=== PATIENT | female | born 1995 | race Caucasian/White ===

== ENCOUNTER 2018-10-08 06:04 | Inpatient (IN) ==
[2018-10-03 12:41] LABS: Basophils % 0.3 % (0.0-0.8); Eosinophils # 0.2 10*3/uL (0.0-0.87); Eosinophils % 2.2 % (0.00-10.9); Hematocrit 38.9 VOL% (35.7-47.0); Hemoglobin 12.7 GM/DL (12.0-16.0); Immature Granulocytes % 0.3 %; Immature Granulocytes Absolute 0.02 #; Lymphocytes # 3.4 10*3/uL (1.4-4.0); Lymphocytes % 49.4 % (21.3-54.2); Mean Corpuscular HGB Conc 32.6 GM/DL (32-36); Mean Corpuscular Hemoglobin 29 PG (27-34); Mean Corpuscular Volume 89.4 FL (87-102); Mean Platelet Volume 9.5 FL (9.6-12.0); Monocytes # 0.4 10*3/uL (0.11-0.8); Monocytes % 5.9 % (1.7-12.7); Neutrophils # 2.9 10*3/uL (1.4-7.4); Neutrophils % 41.9 % (38.7-73.9); Platelet Count 319 T/CUMM (130-400); Red Blood Count 4.35 MC/CUMM (3.8-5.5); Red Cell Distribution Width 14.1 % (9.3-17.3); White Blood Count 6.9 T/CUMM (4-12)
[2018-10-03 13:01] LABS: Apearance,Urine CLEAR (Clear); Bacteria,Urine Occasional /HPF (Few); Bilirubin,Urine Negative (Negative); Blood, Urine Negative (Negative); Glucose,Urine (UA) Negative (Negative); Ketones,Urine Negative (Negative); Mucus,Urine Occasional /LPF (Occasional); Nitrite,Urine Negative (Negative); Protein,Urine Negative; Squamous Epithelial Cell,Urine Occasional /HPF (0-10); Urine Color Yellow (Yellow); Urine Specific Gravity 1.026 (1.001-1.035); Urine Urobilinogen < 2.0 EU/DL (0.2-1.0); WBC,Urine 1 /HPF (0-6)
[~2018-10-08 06:04] MED LIST: ceFAZolin 1,000 MG in SYRINGE 1 EACH IV ONE
[2018-10-08] MEDS ORDERED: FAMOTIDINE 20 MG TABLET PO ONE (06:44)
[2018-10-08] MEDS ORDERED: DIAZEPAM 5 MG TABLET PO ONE (06:44)
[2018-10-08] MEDS ORDERED: ceFAZolin 1,000 MG VIAL ONE (06:59)
[2018-10-08] MEDS ORDERED: DIAZEPAM 5 MG TABLET ONE (07:00)
[2018-10-08] MEDS ORDERED: FAMOTIDINE 20 MG TABLET ONE (07:00)
[2018-10-08] MEDS: LACTATED RINGERS 1,000 ML IV SCH ×4 (07:24→20:12)
[2018-10-08] MEDS ORDERED: MIDAZOLAM 2 MG/2 ML VIAL ONE ×3 (09:45→12:54)
[2018-10-08] MEDS ORDERED: ROPIVACAINE 0.5% 30 ML VIAL ONE ×2 (09:45→09:49)
[2018-10-08] MEDS ORDERED: fentaNYL 100 MCG/2 ML VIAL ONE ×2 (09:46→12:54)
[2018-10-08] MEDS ORDERED: LIDOCAINE 1% 5 ML VIAL ONE (09:57)
[2018-10-08] MEDS ORDERED: BACITRACIN OINT 0.9 GM PACK TOP ONE (10:15)
[2018-10-08] MEDS ORDERED: ONDANSETRON 4 MG/2 ML VIAL IV PRN (10:29)
[2018-10-08] MEDS ORDERED: MAGNESIUM HYDROXIDE SUSP 30 ML UDCUP PO PRN (10:29)
[2018-10-08] MEDS ORDERED: HYDROmorphone 2 MG/1 ML VIAL ONE (12:26)
[2018-10-08] MEDS: HYDROmorphone 2 MG/1 ML VIAL IV PRN ×4 (12:27→12:42)
[2018-10-08] MEDS ORDERED: ERGOCALCIFEROL 50,000 UNIT CAPSULE PO SCH (12:30)
[2018-10-08] MEDS ORDERED: ACETAMINOPHEN INJ 1,000 MG in PREMIX 1 EACH IV STA (12:50)
[2018-10-08] MEDS ORDERED: ACETAMINOPHEN 1,000 MG/100 ML VIAL IV ONE (12:51)
[2018-10-08] MEDS ORDERED: PROPOFOL 200 MG/20 ML VIAL IV ONE (12:53)
[2018-10-08] MEDS ORDERED: DESFLURANE 1 UNIT/15 MINUTE INH ONE (12:53)
[2018-10-08] MEDS ORDERED: ROCURONIUM 100 MG/10 ML VIAL IV ONE (12:54)
[2018-10-08] MEDS ORDERED: LACTATED RINGERS 1,000 ML IV ONE (12:54)
[2018-10-08] MEDS ORDERED: KETOROLAC 30 MG/1 ML VIAL ONE (12:54)
[2018-10-08] MEDS ORDERED: ONDANSETRON 4 MG/2 ML VIAL ONE (12:54)
[2018-10-08] MEDS: MORPHINE 4 MG/1 ML VIAL IV PRN ×3 (14:55→22:56)
[2018-10-08] MEDS: ceFAZolin 1,000 MG in SYRINGE 1 EACH IV SCH (17:10)
[2018-10-08] MEDS: KETOROLAC 30 MG/1 ML VIAL IV SCH (18:34)
[2018-10-08] MEDS: PROMETHAZINE 25 MG/1 ML VIAL IM PRN (20:12)
[2018-10-08] MEDS: FONDAPARINUX 2.5 MG/0.5 ML SYRINGE SUBCUT SCH (20:17)
[2018-10-08] MEDS: CALCIUM (CARBONATE) 600 MG TABLET PO SCH (20:18)
[2018-10-09] MEDS: ceFAZolin 1,000 MG in SYRINGE 1 EACH IV SCH (01:36)
[2018-10-09] MEDS: KETOROLAC 30 MG/1 ML VIAL IV SCH ×3 (01:36→12:55)
[2018-10-09] MEDS: MORPHINE 4 MG/1 ML VIAL IV PRN ×6 (03:15→23:21)
[2018-10-09] MEDS: LACTATED RINGERS 1,000 ML IV SCH (05:11)
[2018-10-09] MEDS ORDERED: diphenhydrAMINE CAP 25 MG CAPSULE PO PRN (06:38)
[2018-10-09 06:42] LABS: Basophils % 0.1 % (0.0-0.8); Eosinophils # 0.2 10*3/uL (0.0-0.87); Eosinophils % 2.3 % (0.00-10.9); Hematocrit 31.7 VOL% (35.7-47.0); Hemoglobin 10.1 GM/DL (12.0-16.0); Immature Granulocytes % 0.3 %; Immature Granulocytes Absolute 0.02 #; Lymphocytes # 3.7 10*3/uL (1.4-4.0); Lymphocytes % 50.2 % (21.3-54.2); Mean Corpuscular HGB Conc 31.9 GM/DL (32-36); Mean Corpuscular Hemoglobin 29 PG (27-34); Mean Corpuscular Volume 91.6 FL (87-102); Mean Platelet Volume 9.7 FL (9.6-12.0); Monocytes # 0.6 10*3/uL (0.11-0.8); Monocytes % 7.7 % (1.7-12.7); Neutrophils # 2.9 10*3/uL (1.4-7.4); Neutrophils % 39.4 % (38.7-73.9); Platelet Count 221 T/CUMM (130-400); Red Blood Count 3.46 MC/CUMM (3.8-5.5); White Blood Count 7.4 T/CUMM (4-12)
[2018-10-09 06:57] LABS: Calcium 8.4 MG/DL (8.5-10.1); Osmolality,Calculated 276.4 MOS/KG (273-304); Potassium 4.2 MMOL/L (3.5-5.1)
[2018-10-09] MEDS: CALCIUM (CARBONATE) 600 MG TABLET PO SCH ×2 (08:13→20:39)
[2018-10-09] MEDS ORDERED: diphenhydrAMINE 25 MG/10 ML UDCUP PO PRN (12:23)
[2018-10-09] MEDS ORDERED: KETOROLAC 30 MG/1 ML VIAL ONE (12:42)
[2018-10-09] MEDS: oxyCODONE/ACETAMINOPHEN 5-325 MG TABLET PO PRN ×3 (13:54→21:41)
[2018-10-09] MEDS: FONDAPARINUX 2.5 MG/0.5 ML SYRINGE SUBCUT SCH (20:39)
[2018-10-10] MEDS: oxyCODONE/ACETAMINOPHEN 5-325 MG TABLET PO PRN ×3 (01:45→11:14)
[2018-10-10] MEDS: MORPHINE 4 MG/1 ML VIAL IV PRN ×2 (03:40→08:46)
[2018-10-10 07:49] LABS: Basophils % 0.1 % (0.0-0.8); Eosinophils # 0.2 10*3/uL (0.0-0.87); Eosinophils % 3.3 % (0.00-10.9); Hematocrit 27.8 VOL% (35.7-47.0); Hemoglobin 8.7 GM/DL (12.0-16.0); Immature Granulocytes % 0.1 %; Immature Granulocytes Absolute 0.01 #; Lymphocytes # 3.6 10*3/uL (1.4-4.0); Lymphocytes % 49.7 % (21.3-54.2); Mean Corpuscular HGB Conc 31.3 GM/DL (32-36); Mean Corpuscular Hemoglobin 29 PG (27-34); Mean Corpuscular Volume 92.1 FL (87-102); Mean Platelet Volume 10.1 FL (9.6-12.0); Monocytes # 0.5 10*3/uL (0.11-0.8); Monocytes % 7.2 % (1.7-12.7); Neutrophils # 2.9 10*3/uL (1.4-7.4); Neutrophils % 39.6 % (38.7-73.9); Platelet Count 202 T/CUMM (130-400); Red Blood Count 3.02 MC/CUMM (3.8-5.5); Red Cell Distribution Width 14.1 % (9.3-17.3); White Blood Count 7.3 T/CUMM (4-12)
[2018-10-10] MEDS: IBUPROFEN 800 MG TABLET PO ONE ×2 (08:36→08:45)
[2018-10-10] MEDS: CALCIUM (CARBONATE) 600 MG TABLET PO SCH (08:36)
[2018-10-10] MEDS ORDERED: ACETAMINOPHEN 325 MG TABLET PO ONE (08:41)
[2018-10-10] MEDS ORDERED: ACETAMINOPHEN 325 MG TABLET ONE (08:44)
[2018-10-10] MEDS: PROMETHAZINE 25 MG/1 ML VIAL IM PRN (11:33)
[2018-10-10 11:52] VITALS: BP 103/57
== END 2018-10-10 14:02 | disposition home or self-care (01) | DRG 482 ==
LOC: N.OR 06:04 → N.SDSINP 06:32 → N.3E 10:30
PROVIDERS: ADMIT Orthopaedic Surgery; ATTEND Orthopaedic Surgery